=== PATIENT | male | born 1985 | race Hispanic/Latino ===

== ENCOUNTER 2022-10-22 21:35 | Emergency (ER) | payer BC ==
[~2022-10-22] VITALS: Ht 175.3 cm; Wt 103.4 kg
[2022-10-22 23:50] VITALS: BP 132/70
[2022-10-23] MEDS ORDERED: KETOROLAC 15MG/ML VIAL (15MG/ML) IM ONE (00:30)
[2022-10-23] MEDS ORDERED: CYCLOBENZAPRINE HCL 10 MG TABLET PO ONE (00:30)
[2022-10-23] MEDS ORDERED: CYCL5TAB PO (00:47)
[2022-10-23] MEDS ORDERED: KETO10TA2 PO (00:47)
== END 2022-10-23 00:52 | disposition home or self-care (01) ==
LOC: EDH 21:35
DX: M62.838 Other muscle spasm (principal); M25.511 Pain in right shoulder; J45.909 Unspecified asthma, uncomplicated
CPT/HCPCS: 99284; 73020; 96372; J1885

== ENCOUNTER 2023-01-10 13:07 | Emergency (ER) | payer BC ==
[~2023-01-10] VITALS: Ht 177.8 cm; Wt 86.2 kg
[~2023-01-10 13:07] MED LIST: CYCL5TAB PO; KETO10TA2 PO
[2023-01-10 13:14] VITALS: BP 121/76
== END 2023-01-10 13:51 | disposition home or self-care (01) ==
LOC: EDH 13:07
DX: M94.0 Chondrocostal junction syndrome [Tietze] (principal); J45.909 Unspecified asthma, uncomplicated
CPT/HCPCS: 99281